=== PATIENT | male | born 1985 | race Caucasian/White ===

== ENCOUNTER 2024-12-17 08:27 | Day surgery (SDC) | payer BC ==
[~2024-12-17 08:27] MED LIST: Midazolam 1 MG/ML 2 ML SDV ONE; Propofol 200 MG/20 ML SDV ONE; Sodium Chloride 0.9% 10 ML Syringe FLUSH PRN; Sodium Chloride 0.9% 10 ML Syringe FLUSH SCH; fentaNYL 100 MCG/2 ML SDV ONE
[2024-12-17] MEDS: Lactated Ringers 1,000 ML IV SCH (09:00)
[2024-12-17] MEDS: oxyCODONE ER 10 MG TAB.ER PO ONE (09:16)
[2024-12-17] MEDS: Pregabalin 25 MG Cap PO ONE (09:17)
[2024-12-17] MEDS: Acetaminophen 325 MG Tab PO ONE (09:17)
[2024-12-17] MEDS ORDERED: HYDROmorphone 0.5 MG/0.5 ML Syringe IVPUSH PRN (09:22)
[2024-12-17] MEDS ORDERED: fentaNYL 100 MCG/2 ML SDV IVPUSH PRN (09:22)
[2024-12-17] MEDS ORDERED: Ondansetron 4 MG/2 ML SDV IVPUSH PRN (09:22)
[2024-12-17] MEDS ORDERED: ceFAZolin 2 GM Vial ONE (09:24)
[2024-12-17] MEDS ORDERED: Lidocaine 1% 4 ML ONE (10:16)
[2024-12-17] MEDS ORDERED: Lactated Ringers 1,000 ML ONE (10:19)
[2024-12-17] MEDS ORDERED: Ketorolac 30 MG/ML SDV ONE (10:21)
[2024-12-17] MEDS ORDERED: Ondansetron 4 MG/2 ML SDV ONE (10:21)
[2024-12-17] MEDS ORDERED: Dexamethasone 4 MG/ML 5 ML MDV ONE (10:21)
[2024-12-17] MEDS: Tranexamic Acid 1,000 MG/10 ML Vial ONE (11:52)
[2024-12-17] MEDS: VANCOmycin 1 GM SDV ONE (11:53)
[2024-12-17] MEDS: Morphine 8 MG, EPINEPHrine 0.3 MG, Cefuroxime 750 MG, Ketorolac 30 MG, Sodium Chloride ... PRN (11:56)
[2024-12-17] MEDS: oxyCODONE 5 MG Tab PO PRN (13:37)
== END 2024-12-17 14:39 | disposition home or self-care (01) ==
LOC: JD.SDS 08:27
PROVIDERS: ATTEND Orthopaedic Surgery
DX: M87.9 Osteonecrosis, unspecified (principal)
CPT/HCPCS: 01214; 73501-26-LT; 73501-LT; 97110-GP; 97116-GP; 97162-GP; A9270-GY; C1776; J0171; J0690; J0697; J1100; J1885; J2003; J2250; J2272; J2405; J2704; J3010; J3490; J7120